=== PATIENT | male | born 1965 | race Two or more races ===

== ENCOUNTER → 2016-12-02 | Outpatient (CLI) | payer OTHER ==
[~2016-12-02] VITALS: Ht 170.2 cm; Wt 101.9 kg
[~2016-12-02] MED LIST: ACET-784 PO; CEPH500 PO; CLOT15CR62 TP; DOXY100C PO; PENI250T4 PO; SIMV-260 PO; TRIA15CR48 TP; TRIA15OI6 TP; VITAD1000 PO
[2016-12-02 08:27] VITALS: BP 122/85
== END | disposition home or self-care (01) ==
LOC: HBOWC 07:53
PROVIDERS: ATTEND Emergency Medicine
DX: I87.2 Venous insufficiency (chronic) (peripheral) (principal); L97.812 Non-pressure chronic ulcer of other part of right lower leg with fat layer exposed; F17.210 Nicotine dependence, cigarettes, uncomplicated
CPT/HCPCS: 97597

== ENCOUNTER → 2016-12-09 | Outpatient (CLI) | payer OTHER ==
[~2016-12-09] MED LIST changes: -CLOT15CR62 TP; +LIDOCAINE HCL 2% 5 ML JELLY TP ONE; -TRIA15CR48 TP; -VITAD1000 PO
[2016-12-09 10:37] VITALS: BP 123/61
== END | disposition home or self-care (01) ==
LOC: HBOWC 10:08
PROVIDERS: ATTEND Emergency Medicine Undersea and Hyperbaric Medicine
DX: I87.2 Venous insufficiency (chronic) (peripheral) (principal); L97.812 Non-pressure chronic ulcer of other part of right lower leg with fat layer exposed; F17.210 Nicotine dependence, cigarettes, uncomplicated
CPT/HCPCS: 97597

== ENCOUNTER → 2016-12-26 | Outpatient (CLI) | payer OTHER ==
[~2016-12-26] MED LIST changes: -CEPH500 PO; -DOXY100C PO; -LIDOCAINE HCL 2% 5 ML JELLY TP ONE; -PENI250T4 PO; -SIMV-260 PO; +SIMV20 PO; -TRIA15OI6 TP
[2016-12-26 14:01] VITALS: BP 109/64
== END | disposition home or self-care (01) ==
LOC: HBOWC 13:16
PROVIDERS: ATTEND Emergency Medicine
DX: I87.2 Venous insufficiency (chronic) (peripheral) (principal); L97.812 Non-pressure chronic ulcer of other part of right lower leg with fat layer exposed; F17.210 Nicotine dependence, cigarettes, uncomplicated
CPT/HCPCS: 15271; Q4101

== ENCOUNTER → 2017-01-02 | Outpatient (CLI) | payer OTHER ==
[~2017-01-02] MED LIST changes: +CEPH500 PO; +NYSTATIN 30 GM OINTMENT TP ONE; +PENI250T4 PO; +SODIUM HYPOCHLORITE 0.25% [HALF STRENGTH] 473 ML SOLUTION TP ONE; +TRIAMCINOLONE 0.1% 15 GM OINTMENT TP ONE
[2017-01-02 14:44] VITALS: BP 143/85
== END | disposition home or self-care (01) ==
LOC: HBOWC 14:13
PROVIDERS: ATTEND Emergency Medicine
DX: I87.2 Venous insufficiency (chronic) (peripheral) (principal); L97.812 Non-pressure chronic ulcer of other part of right lower leg with fat layer exposed; F17.210 Nicotine dependence, cigarettes, uncomplicated
CPT/HCPCS: 97597

== ENCOUNTER → 2017-01-16 | Outpatient (CLI) | payer OTHER ==
[~2017-01-16] MED LIST changes: +DOXY100C PO; -NYSTATIN 30 GM OINTMENT TP ONE; +SIMV-260 PO; -SIMV20 PO; -SODIUM HYPOCHLORITE 0.25% [HALF STRENGTH] 473 ML SOLUTION TP ONE; +TRIA15OI6 TP; -TRIAMCINOLONE 0.1% 15 GM OINTMENT TP ONE
[2017-01-16 13:36] VITALS: BP 122/70
== END | disposition home or self-care (01) ==
LOC: HBOWC 12:41
PROVIDERS: ATTEND Emergency Medicine
DX: I87.2 Venous insufficiency (chronic) (peripheral) (principal); L97.811 Non-pressure chronic ulcer of other part of right lower leg limited to breakdown of skin; F17.210 Nicotine dependence, cigarettes, uncomplicated
CPT/HCPCS: 97597

== ENCOUNTER → 2017-01-30 | Outpatient (CLI) | payer OTHER ==
[2017-01-30 09:24] VITALS: BP 135/80
== END | disposition home or self-care (01) ==
LOC: HBOWC 08:43
PROVIDERS: ATTEND Emergency Medicine
DX: L97.822 Non-pressure chronic ulcer of other part of left lower leg with fat layer exposed (principal); I87.2 Venous insufficiency (chronic) (peripheral); Z72.0 Tobacco use; Z87.891 Personal history of nicotine dependence
CPT/HCPCS: 15271; 15272; Q4101

== ENCOUNTER → 2017-02-06 | Outpatient (CLI) | payer OTHER ==
[~2017-02-06] MED LIST changes: -DOXY100C PO; -SIMV-260 PO; +SIMV20 PO; -TRIA15OI6 TP
[2017-02-06 08:26] VITALS: BP 122/71
== END | disposition home or self-care (01) ==
LOC: HBOWC 08:08
PROVIDERS: ATTEND Emergency Medicine
DX: I87.2 Venous insufficiency (chronic) (peripheral) (principal); L97.812 Non-pressure chronic ulcer of other part of right lower leg with fat layer exposed; F17.210 Nicotine dependence, cigarettes, uncomplicated

== ENCOUNTER → 2017-02-13 | Outpatient (CLI) | payer OTHER ==
[~2017-02-13] MED LIST changes: +DOXY100C PO; +SIMV-260 PO; -SIMV20 PO; +TRIA15OI6 TP; +TRIAMCINOLONE 0.1% 15 GM OINTMENT TP ONE
[2017-02-13 09:25] VITALS: BP 131/77
== END | disposition home or self-care (01) ==
LOC: HBOWC 09:07
PROVIDERS: ATTEND Emergency Medicine
DX: I87.2 Venous insufficiency (chronic) (peripheral) (principal); L97.812 Non-pressure chronic ulcer of other part of right lower leg with fat layer exposed; F17.210 Nicotine dependence, cigarettes, uncomplicated

== ENCOUNTER → 2017-02-16 | Outpatient (CLI) | payer OTHER ==
[~2017-02-16] MED LIST changes: -CEPH500 PO; -DOXY100C PO; -PENI250T4 PO; +TRIAMCINOLONE 0.1% 15 GM CREAM TP ONE; -TRIAMCINOLONE 0.1% 15 GM OINTMENT TP ONE
[2017-02-16 09:16] VITALS: BP 108/76
== END | disposition home or self-care (01) ==
LOC: HBOWC 08:47
PROVIDERS: ATTEND Emergency Medicine
DX: I87.2 Venous insufficiency (chronic) (peripheral) (principal); L97.812 Non-pressure chronic ulcer of other part of right lower leg with fat layer exposed; F17.210 Nicotine dependence, cigarettes, uncomplicated
CPT/HCPCS: 15271; Q4101

== ENCOUNTER → 2017-02-23 | Outpatient (CLI) | payer OTHER ==
[~2017-02-23] MED LIST changes: +DOXY100C PO; -TRIAMCINOLONE 0.1% 15 GM CREAM TP ONE
[2017-02-23 11:40] VITALS: BP 113/70
== END | disposition home or self-care (01) ==
LOC: HBOWC 10:53
PROVIDERS: ATTEND Emergency Medicine
DX: I87.2 Venous insufficiency (chronic) (peripheral) (principal); L97.812 Non-pressure chronic ulcer of other part of right lower leg with fat layer exposed; F17.210 Nicotine dependence, cigarettes, uncomplicated

== ENCOUNTER → 2017-03-05 | Outpatient (CLI) | payer OTHER ==
[2017-03-05 11:23] VITALS: BP 117/74
== END | disposition home or self-care (01) ==
LOC: HBOWC 09:44
PROVIDERS: ATTEND Emergency Medicine
DX: L97.812 Non-pressure chronic ulcer of other part of right lower leg with fat layer exposed (principal); L90.5 Scar conditions and fibrosis of skin; F17.210 Nicotine dependence, cigarettes, uncomplicated; I87.2 Venous insufficiency (chronic) (peripheral)
CPT/HCPCS: 15275; Q4101

== ENCOUNTER → 2017-03-12 | Outpatient (CLI) | payer OTHER ==
[2017-03-12 08:23] VITALS: BP 124/78
== END | disposition home or self-care (01) ==
LOC: HBOWC 07:41
PROVIDERS: ATTEND Emergency Medicine
DX: I87.2 Venous insufficiency (chronic) (peripheral) (principal); L97.812 Non-pressure chronic ulcer of other part of right lower leg with fat layer exposed; F17.210 Nicotine dependence, cigarettes, uncomplicated

== ENCOUNTER → 2017-03-19 | Outpatient (CLI) | payer OTHER ==
[~2017-03-19] MED LIST changes: +TRIAMCINOLONE 0.1% 15 GM OINTMENT TP ONE
[2017-03-19 11:26] VITALS: BP 127/76
== END | disposition home or self-care (01) ==
LOC: HBOWC 10:03
PROVIDERS: ATTEND Emergency Medicine
DX: I87.2 Venous insufficiency (chronic) (peripheral) (principal); L97.811 Non-pressure chronic ulcer of other part of right lower leg limited to breakdown of skin; L90.5 Scar conditions and fibrosis of skin; F17.210 Nicotine dependence, cigarettes, uncomplicated

== ENCOUNTER → 2017-03-31 | Outpatient (CLI) | payer OTHER ==
[~2017-03-31] MED LIST changes: -TRIAMCINOLONE 0.1% 15 GM OINTMENT TP ONE
[2017-03-31 11:19] VITALS: BP 112/65
== END | disposition home or self-care (01) ==
LOC: HBOWC 10:58
PROVIDERS: ATTEND Emergency Medicine
DX: I87.2 Venous insufficiency (chronic) (peripheral) (principal); L97.811 Non-pressure chronic ulcer of other part of right lower leg limited to breakdown of skin; F17.210 Nicotine dependence, cigarettes, uncomplicated
CPT/HCPCS: 15271; Q4101

== ENCOUNTER → 2017-04-06 | Outpatient (CLI) | payer OTHER ==
[~2017-04-06] MED LIST changes: -DOXY100C PO; +TRIAMCINOLONE 0.1% 15 GM OINTMENT TP ONE
[2017-04-06 10:00] VITALS: BP 124/78
== END | disposition home or self-care (01) ==
LOC: HBOWC 09:55
PROVIDERS: ATTEND Emergency Medicine
DX: I87.2 Venous insufficiency (chronic) (peripheral) (principal); L97.812 Non-pressure chronic ulcer of other part of right lower leg with fat layer exposed; F17.210 Nicotine dependence, cigarettes, uncomplicated

== ENCOUNTER → 2017-04-13 | Outpatient (CLI) | payer OTHER ==
[~2017-04-13] MED LIST changes: -TRIAMCINOLONE 0.1% 15 GM OINTMENT TP ONE
[2017-04-13 08:23] VITALS: BP 135/82
== END | disposition home or self-care (01) ==
LOC: HBOWC 07:50
PROVIDERS: ATTEND Emergency Medicine
DX: I87.2 Venous insufficiency (chronic) (peripheral) (principal); L97.812 Non-pressure chronic ulcer of other part of right lower leg with fat layer exposed; F17.210 Nicotine dependence, cigarettes, uncomplicated

== ENCOUNTER → 2017-04-20 | Outpatient (CLI) | payer OTHER ==
[~2017-04-20] MED LIST changes: +TRIAMCINOLONE 0.1% 15 GM OINTMENT TP ONE
[2017-04-20 08:27] VITALS: BP 132/73
== END | disposition home or self-care (01) ==
LOC: HBOWC 07:36
PROVIDERS: ATTEND Emergency Medicine Undersea and Hyperbaric Medicine
DX: I87.2 Venous insufficiency (chronic) (peripheral) (principal); L97.812 Non-pressure chronic ulcer of other part of right lower leg with fat layer exposed; F17.210 Nicotine dependence, cigarettes, uncomplicated

== ENCOUNTER → 2017-04-27 | Outpatient (CLI) | payer OTHER ==
[~2017-04-27] MED LIST changes: -TRIAMCINOLONE 0.1% 15 GM OINTMENT TP ONE
[2017-04-27 08:25] VITALS: BP 124/67
== END | disposition home or self-care (01) ==
LOC: HBOWC 08:00
PROVIDERS: ATTEND Emergency Medicine
DX: I87.2 Venous insufficiency (chronic) (peripheral) (principal); L97.812 Non-pressure chronic ulcer of other part of right lower leg with fat layer exposed; F17.210 Nicotine dependence, cigarettes, uncomplicated

== ENCOUNTER → 2017-05-04 | Outpatient (CLI) | payer OTHER ==
[2017-05-04 08:15] VITALS: BP 109/80
== END | disposition home or self-care (01) ==
LOC: HBOWC 08:07
PROVIDERS: ATTEND Emergency Medicine
DX: I87.2 Venous insufficiency (chronic) (peripheral) (principal); L97.811 Non-pressure chronic ulcer of other part of right lower leg limited to breakdown of skin; L90.5 Scar conditions and fibrosis of skin; F17.210 Nicotine dependence, cigarettes, uncomplicated
CPT/HCPCS: 97597

== ENCOUNTER → 2017-05-11 | Outpatient (CLI) | payer OTHER ==
[2017-05-11 08:20] VITALS: BP 131/78
== END | disposition home or self-care (01) ==
LOC: HBOWC 07:52
PROVIDERS: ATTEND Emergency Medicine
DX: I87.2 Venous insufficiency (chronic) (peripheral) (principal); L97.811 Non-pressure chronic ulcer of other part of right lower leg limited to breakdown of skin; L90.5 Scar conditions and fibrosis of skin; F17.210 Nicotine dependence, cigarettes, uncomplicated
CPT/HCPCS: 97597

== ENCOUNTER → 2017-05-25 | Outpatient (CLI) | payer OTHER ==
[~2017-05-25] MED LIST changes: +CLOT30CR23 TP
[2017-05-25 08:21] VITALS: BP 129/77
== END | disposition home or self-care (01) ==
LOC: HBOWC 08:11
PROVIDERS: ATTEND Emergency Medicine
DX: I87.2 Venous insufficiency (chronic) (peripheral) (principal); L97.811 Non-pressure chronic ulcer of other part of right lower leg limited to breakdown of skin; F17.210 Nicotine dependence, cigarettes, uncomplicated
CPT/HCPCS: 97597

== ENCOUNTER → 2017-06-01 | Outpatient (CLI) | payer OTHER ==
[~2017-06-01] MED LIST changes: -TRIA15OI6 TP
[2017-06-01 08:26] VITALS: BP 134/81
== END | disposition home or self-care (01) ==
LOC: HBOWC 07:48
PROVIDERS: ATTEND Emergency Medicine
DX: I87.2 Venous insufficiency (chronic) (peripheral) (principal); L97.811 Non-pressure chronic ulcer of other part of right lower leg limited to breakdown of skin; F17.210 Nicotine dependence, cigarettes, uncomplicated; L90.5 Scar conditions and fibrosis of skin
CPT/HCPCS: 97597

== ENCOUNTER → 2017-06-22 | Outpatient (CLI) | payer OTHER ==
[2017-06-22 08:07] VITALS: BP 110/72
== END | disposition home or self-care (01) ==
LOC: HBOWC 07:55
PROVIDERS: ATTEND Surgery Plastic and Reconstructive Surgery
DX: I87.2 Venous insufficiency (chronic) (peripheral) (principal); L97.811 Non-pressure chronic ulcer of other part of right lower leg limited to breakdown of skin; F17.210 Nicotine dependence, cigarettes, uncomplicated
CPT/HCPCS: 97597

== ENCOUNTER → 2017-06-29 | Outpatient (CLI) | payer OTHER ==
[~2017-06-29] MED LIST changes: +LIDOCAINE HCL 2% 5 ML JELLY TP ONE
[2017-06-29 14:02] VITALS: BP 127/79
== END | disposition home or self-care (01) ==
LOC: HBOWC 13:10
PROVIDERS: ATTEND Nurse Practitioner Adult Health
DX: I87.2 Venous insufficiency (chronic) (peripheral) (principal); L97.811 Non-pressure chronic ulcer of other part of right lower leg limited to breakdown of skin; F17.210 Nicotine dependence, cigarettes, uncomplicated
CPT/HCPCS: 97597

== ENCOUNTER → 2017-07-13 | Outpatient (CLI) | payer OTHER ==
[~2017-07-13] MED LIST changes: -LIDOCAINE HCL 2% 5 ML JELLY TP ONE
[2017-07-13 08:25] VITALS: BP 136/92
== END | disposition home or self-care (01) ==
LOC: HBOWC 08:09
PROVIDERS: ATTEND Surgery Plastic and Reconstructive Surgery
DX: S81.801D Unspecified open wound, right lower leg, subsequent encounter (principal); I87.2 Venous insufficiency (chronic) (peripheral); L90.5 Scar conditions and fibrosis of skin; F17.210 Nicotine dependence, cigarettes, uncomplicated; X58.XXXD Exposure to other specified factors, subsequent encounter
CPT/HCPCS: 97597

== ENCOUNTER → 2017-07-20 | Outpatient (CLI) | payer OTHER ==
[2017-07-20 08:40] VITALS: BP 130/74
== END | disposition home or self-care (01) ==
LOC: HBOWC 08:14
PROVIDERS: ATTEND Surgery Plastic and Reconstructive Surgery
DX: S81.801D Unspecified open wound, right lower leg, subsequent encounter (principal); F17.210 Nicotine dependence, cigarettes, uncomplicated; I87.2 Venous insufficiency (chronic) (peripheral); X58.XXXD Exposure to other specified factors, subsequent encounter
CPT/HCPCS: 97597

== ENCOUNTER → 2017-07-27 | Outpatient (CLI) | payer OTHER ==
[2017-07-27 08:34] VITALS: BP 136/81
== END | disposition home or self-care (01) ==
LOC: HBOWC 08:01
PROVIDERS: ATTEND Surgery Plastic and Reconstructive Surgery
DX: S81.801D Unspecified open wound, right lower leg, subsequent encounter (principal); I87.2 Venous insufficiency (chronic) (peripheral); F17.210 Nicotine dependence, cigarettes, uncomplicated; X58.XXXD Exposure to other specified factors, subsequent encounter
CPT/HCPCS: 97597

== ENCOUNTER → 2017-08-17 | Outpatient (CLI) | payer OTHER ==
[~2017-08-17] MED LIST changes: +LIDOCAINE HCL 2% 5 ML JELLY TP ONE
[2017-08-17 08:23] VITALS: BP 101/68
== END | disposition home or self-care (01) ==
LOC: HBOWC 08:01
PROVIDERS: ATTEND Surgery Plastic and Reconstructive Surgery
DX: T81.89XD Other complications of procedures, not elsewhere classified, subsequent encounter (principal); I87.2 Venous insufficiency (chronic) (peripheral); F17.210 Nicotine dependence, cigarettes, uncomplicated; Y83.8 Other surgical procedures as the cause of abnormal reaction of the patient, or of later complication, without mention of misadventure at the time of the procedure
CPT/HCPCS: 97597

== ENCOUNTER → 2017-08-24 | Outpatient (CLI) | payer OTHER ==
[~2017-08-24] MED LIST changes: -LIDOCAINE HCL 2% 5 ML JELLY TP ONE
[2017-08-24 08:10] VITALS: BP 130/60
== END | disposition home or self-care (01) ==
LOC: HBOWC 07:48
PROVIDERS: ATTEND Surgery Plastic and Reconstructive Surgery
DX: S81.801D Unspecified open wound, right lower leg, subsequent encounter (principal); I87.2 Venous insufficiency (chronic) (peripheral); F17.210 Nicotine dependence, cigarettes, uncomplicated
CPT/HCPCS: 97597

== ENCOUNTER → 2017-08-31 | Outpatient (CLI) | payer OTHER ==
[~2017-08-31] MED LIST changes: +LIDOCAINE HCL 2% 5 ML JELLY TP ONE
[2017-08-31 08:32] VITALS: BP 140/76
== END | disposition home or self-care (01) ==
LOC: HBOWC 08:07
PROVIDERS: ATTEND Surgery Plastic and Reconstructive Surgery
DX: S81.801D Unspecified open wound, right lower leg, subsequent encounter (principal); I87.2 Venous insufficiency (chronic) (peripheral); F17.210 Nicotine dependence, cigarettes, uncomplicated; X58.XXXD Exposure to other specified factors, subsequent encounter
CPT/HCPCS: 97597

== ENCOUNTER → 2017-09-07 | Outpatient (CLI) | payer OTHER ==
[~2017-09-07] MED LIST changes: -LIDOCAINE HCL 2% 5 ML JELLY TP ONE
[2017-09-07 08:13] VITALS: BP 133/77
== END | disposition home or self-care (01) ==
LOC: HBOWC 07:46
PROVIDERS: ATTEND Surgery Plastic and Reconstructive Surgery
DX: S81.802D Unspecified open wound, left lower leg, subsequent encounter (principal); I87.2 Venous insufficiency (chronic) (peripheral); F17.210 Nicotine dependence, cigarettes, uncomplicated; X58.XXXD Exposure to other specified factors, subsequent encounter
CPT/HCPCS: 97597

== ENCOUNTER → 2017-09-14 | Outpatient (CLI) | payer OTHER ==
[~2017-09-14] MED LIST changes: +LIDOCAINE HCL 2% 5 ML JELLY ONE
[2017-09-14 08:17] VITALS: BP 119/76
== END | disposition home or self-care (01) ==
LOC: HBOWC 07:53
PROVIDERS: ATTEND Surgery Plastic and Reconstructive Surgery
DX: S81.801D Unspecified open wound, right lower leg, subsequent encounter (principal); F17.210 Nicotine dependence, cigarettes, uncomplicated; I87.2 Venous insufficiency (chronic) (peripheral); X58.XXXD Exposure to other specified factors, subsequent encounter
CPT/HCPCS: 97597

== ENCOUNTER → 2017-09-21 | Outpatient (CLI) | payer OTHER ==
[~2017-09-21] MED LIST changes: -LIDOCAINE HCL 2% 5 ML JELLY ONE; +LIDOCAINE HCL 2% 5 ML JELLY TP ONE
[2017-09-21 08:21] VITALS: BP 117/67
== END | disposition home or self-care (01) ==
LOC: HBOWC 07:51
PROVIDERS: ATTEND Surgery Plastic and Reconstructive Surgery
DX: S81.801D Unspecified open wound, right lower leg, subsequent encounter (principal); F17.210 Nicotine dependence, cigarettes, uncomplicated; I87.2 Venous insufficiency (chronic) (peripheral); X58.XXXD Exposure to other specified factors, subsequent encounter
CPT/HCPCS: 11042; 11045; 97597; 97598

== ENCOUNTER → 2017-10-21 | Outpatient (CLI) | payer OTHER ==
[~2017-10-21] MED LIST changes: -ACET-784 PO; -CLOT30CR23 TP; -SIMV-260 PO
[2017-10-21 08:19] VITALS: BP 145/74
== END | disposition home or self-care (01) ==
LOC: HBOWC 07:57
PROVIDERS: ATTEND Internal Medicine
DX: S81.801D Unspecified open wound, right lower leg, subsequent encounter (principal); I87.2 Venous insufficiency (chronic) (peripheral); F17.210 Nicotine dependence, cigarettes, uncomplicated; X58.XXXD Exposure to other specified factors, subsequent encounter
CPT/HCPCS: 97597

== ENCOUNTER → 2017-10-28 | Outpatient (CLI) | payer OTHER ==
[2017-10-28 08:23] VITALS: BP 147/87
== END | disposition home or self-care (01) ==
LOC: HBOWC 07:58
PROVIDERS: ATTEND Internal Medicine
DX: S81.801D Unspecified open wound, right lower leg, subsequent encounter (principal); I87.2 Venous insufficiency (chronic) (peripheral); F17.210 Nicotine dependence, cigarettes, uncomplicated; X58.XXXD Exposure to other specified factors, subsequent encounter
CPT/HCPCS: 11042

== ENCOUNTER → 2017-11-04 | Outpatient (CLI) | payer OTHER ==
[2017-11-04 08:14] VITALS: BP 128/77
== END | disposition home or self-care (01) ==
LOC: HBOWC 07:57
PROVIDERS: ATTEND Internal Medicine
DX: S81.801D Unspecified open wound, right lower leg, subsequent encounter (principal); F17.210 Nicotine dependence, cigarettes, uncomplicated; I87.2 Venous insufficiency (chronic) (peripheral); X58.XXXD Exposure to other specified factors, subsequent encounter
CPT/HCPCS: 11042

== ENCOUNTER → 2017-11-11 | Outpatient (CLI) | payer OTHER ==
[2017-11-11 08:20] VITALS: BP 130/70
== END | disposition home or self-care (01) ==
LOC: HBOWC 07:45
PROVIDERS: ATTEND Internal Medicine
DX: S81.801D Unspecified open wound, right lower leg, subsequent encounter (principal); I87.2 Venous insufficiency (chronic) (peripheral); F17.210 Nicotine dependence, cigarettes, uncomplicated; X58.XXXD Exposure to other specified factors, subsequent encounter
CPT/HCPCS: 97597

== ENCOUNTER → 2017-11-25 | Outpatient (CLI) | payer OTHER ==
[2017-11-25 13:25] VITALS: BP 127/83
== END | disposition home or self-care (01) ==
LOC: HBOWC 13:12
PROVIDERS: ATTEND Internal Medicine
DX: S81.801D Unspecified open wound, right lower leg, subsequent encounter (principal); I87.2 Venous insufficiency (chronic) (peripheral); F17.210 Nicotine dependence, cigarettes, uncomplicated; X58.XXXD Exposure to other specified factors, subsequent encounter
CPT/HCPCS: 97597

== ENCOUNTER → 2017-12-02 | Outpatient (CLI) | payer OTHER ==
[2017-12-02 13:53] VITALS: BP 132/78
== END | disposition home or self-care (01) ==
LOC: HBOWC 13:10
PROVIDERS: ATTEND Internal Medicine
DX: S81.801D Unspecified open wound, right lower leg, subsequent encounter (principal); I87.2 Venous insufficiency (chronic) (peripheral); F17.210 Nicotine dependence, cigarettes, uncomplicated; X58.XXXD Exposure to other specified factors, subsequent encounter
CPT/HCPCS: 11042

== ENCOUNTER → 2017-12-16 | Outpatient (CLI) | payer OTHER ==
[2017-12-16 11:26] VITALS: BP 125/78
== END | disposition home or self-care (01) ==
LOC: HBOWC 11:16
PROVIDERS: ATTEND Internal Medicine
DX: S81.801D Unspecified open wound, right lower leg, subsequent encounter (principal); F17.210 Nicotine dependence, cigarettes, uncomplicated; X58.XXXD Exposure to other specified factors, subsequent encounter
CPT/HCPCS: 11042

== ENCOUNTER → 2017-12-30 | Outpatient (CLI) | payer OTHER ==
[2017-12-30 11:10] VITALS: BP 135/74
== END | disposition home or self-care (01) ==
LOC: HBOWC 11:07
PROVIDERS: ATTEND Internal Medicine
DX: S81.801D Unspecified open wound, right lower leg, subsequent encounter (principal); I87.2 Venous insufficiency (chronic) (peripheral); F17.210 Nicotine dependence, cigarettes, uncomplicated; X58.XXXD Exposure to other specified factors, subsequent encounter
CPT/HCPCS: 97597

== ENCOUNTER → 2018-01-13 | Outpatient (CLI) | payer OTHER ==
[2018-01-13 11:20] VITALS: BP 147/88
== END | disposition home or self-care (01) ==
LOC: HBOWC 11:10
PROVIDERS: ATTEND Internal Medicine
DX: S81.801D Unspecified open wound, right lower leg, subsequent encounter (principal); I87.2 Venous insufficiency (chronic) (peripheral); F17.210 Nicotine dependence, cigarettes, uncomplicated; X58.XXXD Exposure to other specified factors, subsequent encounter
CPT/HCPCS: 11042

== ENCOUNTER → 2018-01-27 | Outpatient (CLI) | payer OTHER ==
[2018-01-27 11:35] VITALS: BP 132/79
== END | disposition home or self-care (01) ==
LOC: HBOWC 10:51
PROVIDERS: ATTEND Internal Medicine
DX: S81.801D Unspecified open wound, right lower leg, subsequent encounter (principal); F17.210 Nicotine dependence, cigarettes, uncomplicated; I87.2 Venous insufficiency (chronic) (peripheral); X58.XXXD Exposure to other specified factors, subsequent encounter
CPT/HCPCS: 11042

== ENCOUNTER → 2018-02-03 | Outpatient (CLI) | payer OTHER ==
[2018-02-03 12:05] VITALS: BP 126/83
== END | disposition home or self-care (01) ==
LOC: HBOWC 11:37
PROVIDERS: ATTEND Internal Medicine
DX: S81.801D Unspecified open wound, right lower leg, subsequent encounter (principal); I87.2 Venous insufficiency (chronic) (peripheral); F17.210 Nicotine dependence, cigarettes, uncomplicated; X58.XXXD Exposure to other specified factors, subsequent encounter
CPT/HCPCS: 11042

== ENCOUNTER → 2018-02-10 | Outpatient (CLI) | payer OTHER ==
[2018-02-10 11:45] VITALS: BP 129/75
== END | disposition home or self-care (01) ==
LOC: HBOWC 11:24
PROVIDERS: ATTEND Internal Medicine
DX: S81.801D Unspecified open wound, right lower leg, subsequent encounter (principal); I87.2 Venous insufficiency (chronic) (peripheral); F17.210 Nicotine dependence, cigarettes, uncomplicated; X58.XXXD Exposure to other specified factors, subsequent encounter
CPT/HCPCS: 11042

== ENCOUNTER → 2018-02-17 | Outpatient (CLI) | payer OTHER ==
[~2018-02-17] MED LIST changes: -LIDOCAINE HCL 2% 5 ML JELLY TP ONE; +NYSTATIN 15 GM POWDER BOTTLE TP ONE
[2018-02-17 11:42] VITALS: BP 139/80
== END | disposition home or self-care (01) ==
LOC: HBOWC 11:23
PROVIDERS: ATTEND Internal Medicine
DX: S81.801D Unspecified open wound, right lower leg, subsequent encounter (principal); I87.2 Venous insufficiency (chronic) (peripheral); F17.210 Nicotine dependence, cigarettes, uncomplicated; X58.XXXD Exposure to other specified factors, subsequent encounter
CPT/HCPCS: 11042

== ENCOUNTER → 2018-02-24 | Outpatient (CLI) | payer OTHER ==
[2018-02-24 14:18] VITALS: BP 118/90
== END | disposition home or self-care (01) ==
LOC: HBOWC 08:49
PROVIDERS: ATTEND Internal Medicine
DX: S81.801D Unspecified open wound, right lower leg, subsequent encounter (principal); I87.2 Venous insufficiency (chronic) (peripheral); F17.210 Nicotine dependence, cigarettes, uncomplicated; X58.XXXD Exposure to other specified factors, subsequent encounter
CPT/HCPCS: 11042

== ENCOUNTER → 2018-03-03 | Outpatient (CLI) | payer OTHER ==
[2018-03-03 10:01] VITALS: BP 132/77
== END | disposition home or self-care (01) ==
LOC: HBOWC 09:51
PROVIDERS: ATTEND Internal Medicine
DX: S81.801D Unspecified open wound, right lower leg, subsequent encounter (principal); I87.2 Venous insufficiency (chronic) (peripheral); F17.210 Nicotine dependence, cigarettes, uncomplicated; X58.XXXD Exposure to other specified factors, subsequent encounter
CPT/HCPCS: 11042

== ENCOUNTER → 2018-03-10 | Outpatient (CLI) | payer OTHER ==
[2018-03-10 12:10] VITALS: BP 133/79
== END | disposition home or self-care (01) ==
LOC: HBOWC 10:57
PROVIDERS: ATTEND Internal Medicine
DX: S81.801D Unspecified open wound, right lower leg, subsequent encounter (principal); I87.2 Venous insufficiency (chronic) (peripheral); F17.210 Nicotine dependence, cigarettes, uncomplicated; X58.XXXD Exposure to other specified factors, subsequent encounter
CPT/HCPCS: 11042

== ENCOUNTER → 2018-03-17 | Outpatient (CLI) | payer OTHER ==
[~2018-03-17] MED LIST changes: +HYDROCORTISONE 1% 30 GM CREAM TP ONE; +LIDOCAINE HCL 2% 5 ML JELLY TP ONE; +LIDOCAINE HCL 4% 50 ML SOLUTION TP ONE; -NYSTATIN 15 GM POWDER BOTTLE TP ONE
[2018-03-17 12:16] VITALS: BP 127/70
== END | disposition home or self-care (01) ==
LOC: HBOWC 10:54
PROVIDERS: ATTEND Internal Medicine
DX: S81.801D Unspecified open wound, right lower leg, subsequent encounter (principal); I87.2 Venous insufficiency (chronic) (peripheral); F17.210 Nicotine dependence, cigarettes, uncomplicated; X58.XXXD Exposure to other specified factors, subsequent encounter
CPT/HCPCS: 11042

== ENCOUNTER → 2018-03-24 | Outpatient (CLI) | payer OTHER ==
[2018-03-24 12:28] VITALS: BP 124/78
== END | disposition home or self-care (01) ==
LOC: HBOWC 10:39
PROVIDERS: ATTEND Internal Medicine
DX: S81.801D Unspecified open wound, right lower leg, subsequent encounter (principal); I87.2 Venous insufficiency (chronic) (peripheral); F17.210 Nicotine dependence, cigarettes, uncomplicated; X58.XXXD Exposure to other specified factors, subsequent encounter
CPT/HCPCS: 11042

== ENCOUNTER → 2018-03-31 | Outpatient (CLI) | payer OTHER ==
[2018-03-31 11:09] VITALS: BP 128/77
== END | disposition home or self-care (01) ==
LOC: HBOWC 10:55
PROVIDERS: ATTEND Internal Medicine
DX: S81.801D Unspecified open wound, right lower leg, subsequent encounter (principal); I87.2 Venous insufficiency (chronic) (peripheral); F17.210 Nicotine dependence, cigarettes, uncomplicated; X58.XXXD Exposure to other specified factors, subsequent encounter
CPT/HCPCS: 11042

== ENCOUNTER → 2018-04-28 | Outpatient (CLI) | payer OTHER ==
[~2018-04-28] MED LIST changes: +CIPR-278 PO; +DOXY100C PO; -HYDROCORTISONE 1% 30 GM CREAM TP ONE; -LIDOCAINE HCL 2% 5 ML JELLY TP ONE; -LIDOCAINE HCL 4% 50 ML SOLUTION TP ONE
[2018-04-28 11:25] VITALS: BP 117/68
== END | disposition home or self-care (01) ==
LOC: HBOWC 11:01
PROVIDERS: ATTEND Internal Medicine
DX: S81.801D Unspecified open wound, right lower leg, subsequent encounter (principal); I87.2 Venous insufficiency (chronic) (peripheral); F17.210 Nicotine dependence, cigarettes, uncomplicated; X58.XXXD Exposure to other specified factors, subsequent encounter
CPT/HCPCS: 11042

== ENCOUNTER → 2018-05-05 | Outpatient (CLI) | payer OTHER ==
[~2018-05-05] MED LIST changes: +LIDOCAINE HCL 2% 5 ML JELLY TP ONE
[2018-05-05 11:35] VITALS: BP 109/55
== END | disposition home or self-care (01) ==
LOC: HBOWC 11:24
PROVIDERS: ATTEND Internal Medicine
DX: S81.801D Unspecified open wound, right lower leg, subsequent encounter (principal); I87.2 Venous insufficiency (chronic) (peripheral); F17.210 Nicotine dependence, cigarettes, uncomplicated; X58.XXXD Exposure to other specified factors, subsequent encounter
CPT/HCPCS: 11042

== ENCOUNTER → 2018-05-12 | Outpatient (CLI) | payer OTHER ==
[~2018-05-12] MED LIST changes: -LIDOCAINE HCL 2% 5 ML JELLY TP ONE
[2018-05-12 11:40] VITALS: BP 131/73
== END | disposition home or self-care (01) ==
LOC: HBOWC 11:36
PROVIDERS: ATTEND Internal Medicine
DX: S81.801D Unspecified open wound, right lower leg, subsequent encounter (principal); I87.2 Venous insufficiency (chronic) (peripheral); F17.210 Nicotine dependence, cigarettes, uncomplicated; X58.XXXD Exposure to other specified factors, subsequent encounter
CPT/HCPCS: 11042

== ENCOUNTER → 2018-05-18 | Outpatient (CLI) | payer OTHER | END | disposition home or self-care (01) | LOC: RADPV 09:15 | PROVIDERS: ATTEND Internal Medicine | DX: I73.9 Peripheral vascular disease, unspecified (principal); L97.919 Non-pressure chronic ulcer of unspecified part of right lower leg with unspecified severity | CPT/HCPCS: 93880; 93925 ==

== ENCOUNTER → 2018-05-26 | Outpatient (CLI) | payer OTHER ==
[2018-05-26 11:10] VITALS: BP 124/73
== END | disposition home or self-care (01) ==
LOC: HBOWC 10:54
PROVIDERS: ATTEND Podiatrist
DX: S81.801D Unspecified open wound, right lower leg, subsequent encounter (principal); I87.2 Venous insufficiency (chronic) (peripheral); F17.210 Nicotine dependence, cigarettes, uncomplicated; X58.XXXD Exposure to other specified factors, subsequent encounter

== ENCOUNTER → 2018-06-16 | Outpatient (CLI) | payer OTHER ==
[2018-06-16 11:15] VITALS: BP 135/72
== END | disposition home or self-care (01) ==
LOC: HBOWC 11:06
PROVIDERS: ATTEND Internal Medicine
DX: S81.801D Unspecified open wound, right lower leg, subsequent encounter (principal); I87.2 Venous insufficiency (chronic) (peripheral); I73.9 Peripheral vascular disease, unspecified; F17.210 Nicotine dependence, cigarettes, uncomplicated; X58.XXXD Exposure to other specified factors, subsequent encounter
CPT/HCPCS: 11042

== ENCOUNTER → 2018-06-23 | Outpatient (CLI) | payer OTHER ==
[2018-06-23 11:10] VITALS: BP 147/79
== END | disposition home or self-care (01) ==
LOC: HBOWC 11:12
PROVIDERS: ATTEND Internal Medicine
DX: S81.801D Unspecified open wound, right lower leg, subsequent encounter (principal); I87.2 Venous insufficiency (chronic) (peripheral); I73.9 Peripheral vascular disease, unspecified; F17.210 Nicotine dependence, cigarettes, uncomplicated; X58.XXXD Exposure to other specified factors, subsequent encounter
CPT/HCPCS: 11042

== ENCOUNTER → 2018-06-30 | Outpatient (CLI) | payer OTHER ==
[2018-06-30 11:02] VITALS: BP 130/71
== END | disposition home or self-care (01) ==
LOC: HBOWC 10:43
PROVIDERS: ATTEND Internal Medicine
DX: S81.801D Unspecified open wound, right lower leg, subsequent encounter (principal); I87.2 Venous insufficiency (chronic) (peripheral); I73.9 Peripheral vascular disease, unspecified; F17.210 Nicotine dependence, cigarettes, uncomplicated; X58.XXXD Exposure to other specified factors, subsequent encounter
CPT/HCPCS: 11042

== ENCOUNTER → 2018-07-07 | Outpatient (CLI) | payer OTHER ==
[2018-07-07 10:50] VITALS: BP 114/73
== END | disposition home or self-care (01) ==
LOC: HBOWC 10:34
PROVIDERS: ATTEND Internal Medicine
DX: S81.801D Unspecified open wound, right lower leg, subsequent encounter (principal); I87.2 Venous insufficiency (chronic) (peripheral); I73.9 Peripheral vascular disease, unspecified; F17.210 Nicotine dependence, cigarettes, uncomplicated; X58.XXXD Exposure to other specified factors, subsequent encounter
CPT/HCPCS: 11042

== ENCOUNTER → 2018-07-14 | Outpatient (CLI) | payer OTHER ==
[2018-07-14 11:28] VITALS: BP 127/84
== END | disposition home or self-care (01) ==
LOC: HBOWC 10:30
PROVIDERS: ATTEND Internal Medicine
DX: S81.801D Unspecified open wound, right lower leg, subsequent encounter (principal); I87.2 Venous insufficiency (chronic) (peripheral); I73.9 Peripheral vascular disease, unspecified; F17.210 Nicotine dependence, cigarettes, uncomplicated; X58.XXXD Exposure to other specified factors, subsequent encounter
CPT/HCPCS: 11042

== ENCOUNTER → 2018-07-21 | Outpatient (CLI) | payer OTHER ==
[2018-07-21 11:20] VITALS: BP 113/95
== END | disposition home or self-care (01) ==
LOC: HBOWC 11:01
PROVIDERS: ATTEND Internal Medicine
DX: S81.801D Unspecified open wound, right lower leg, subsequent encounter (principal); I87.2 Venous insufficiency (chronic) (peripheral); I73.9 Peripheral vascular disease, unspecified; F17.210 Nicotine dependence, cigarettes, uncomplicated; X58.XXXD Exposure to other specified factors, subsequent encounter
CPT/HCPCS: 11042

== ENCOUNTER → 2018-08-04 | Outpatient (CLI) | payer OTHER ==
[2018-08-04 11:02] VITALS: BP 140/77
== END | disposition home or self-care (01) ==
LOC: HBOWC 10:38
PROVIDERS: ATTEND Internal Medicine
DX: T81.89XD Other complications of procedures, not elsewhere classified, subsequent encounter (principal); L97.812 Non-pressure chronic ulcer of other part of right lower leg with fat layer exposed; I87.2 Venous insufficiency (chronic) (peripheral); I73.9 Peripheral vascular disease, unspecified; F17.210 Nicotine dependence, cigarettes, uncomplicated; Y83.8 Other surgical procedures as the cause of abnormal reaction of the patient, or of later complication, without mention of misadventure at the time of the procedure
CPT/HCPCS: 11042

== ENCOUNTER → 2018-08-18 | Outpatient (CLI) | payer OTHER ==
[~2018-08-18] MED LIST changes: -CIPR-278 PO; -DOXY100C PO; +LIDOCAINE 2% 5 ML JELLY TP ONE
[2018-08-18 11:10] VITALS: BP 139/80
== END | disposition home or self-care (01) ==
LOC: HBOWC 11:06
PROVIDERS: ATTEND Internal Medicine
DX: T81.89XD Other complications of procedures, not elsewhere classified, subsequent encounter (principal); L97.812 Non-pressure chronic ulcer of other part of right lower leg with fat layer exposed; I87.2 Venous insufficiency (chronic) (peripheral); I73.9 Peripheral vascular disease, unspecified; F17.210 Nicotine dependence, cigarettes, uncomplicated; Y83.8 Other surgical procedures as the cause of abnormal reaction of the patient, or of later complication, without mention of misadventure at the time of the procedure
CPT/HCPCS: 11042

== ENCOUNTER → 2018-09-01 | Outpatient (CLI) | payer OTHER ==
[2018-09-01 11:39] VITALS: BP 151/71
== END | disposition home or self-care (01) ==
LOC: HBOWC 11:12
PROVIDERS: ATTEND Internal Medicine
DX: T81.89XD Other complications of procedures, not elsewhere classified, subsequent encounter (principal); L97.812 Non-pressure chronic ulcer of other part of right lower leg with fat layer exposed; I87.2 Venous insufficiency (chronic) (peripheral); I73.9 Peripheral vascular disease, unspecified; F17.210 Nicotine dependence, cigarettes, uncomplicated; Y83.8 Other surgical procedures as the cause of abnormal reaction of the patient, or of later complication, without mention of misadventure at the time of the procedure
CPT/HCPCS: 11042

== ENCOUNTER → 2018-09-15 | Outpatient (CLI) | payer OTHER ==
[2018-09-15 11:54] VITALS: BP 144/90
== END | disposition home or self-care (01) ==
LOC: HBOWC 11:10
PROVIDERS: ATTEND Internal Medicine
DX: T81.89XD Other complications of procedures, not elsewhere classified, subsequent encounter (principal); L97.811 Non-pressure chronic ulcer of other part of right lower leg limited to breakdown of skin; I87.2 Venous insufficiency (chronic) (peripheral); I73.9 Peripheral vascular disease, unspecified; F17.210 Nicotine dependence, cigarettes, uncomplicated; Y83.8 Other surgical procedures as the cause of abnormal reaction of the patient, or of later complication, without mention of misadventure at the time of the procedure